=== PATIENT | female | born 1965 | race Hispanic/Latino ===

== ENCOUNTER 2017-04-09 15:57 | Emergency (ER) | payer OTHER ==
[2017-04-09 16:12] VITALS: BMI 20.7
[2017-04-09 16:14] VITALS: RESP 18; TEMP 97.9
--- NOTE | 2017-04-09 17:10 | ED PDOC ---
Arrival/HPI - General Chief Complaint: Weakness/Neurological Deficit Time Seen by Provider: 04/09/17 16:28 Historian: Patient, Family - History of Present Illness Narrative History of Present Illness (Text): 04/09/17 17:02 Pt is 51 yo F c/o anxiety and right leg weakness x 2 days with the most recent event at 2 pm today when she woke up. Pt has a PMH of peripheral neuropathy, anxiety, and HTN, for which she has been treated for many years. Pt reports that for the last 2 days, she has not eaten or taken her medication due to her anxious state. Pt reports that she spoke with her [employer] yesterday who advised her to stop taking progesterone and Divigil that was started last Wednesday. Pt denies SOB, CP, syncope, WILKES, fever, chills, or GIB. Past Medical History - Tetanus Immunization Tetanus Immunization: Unknown - Reproductive Menopause: Yes - Cardiac Hx Cardiac Disorders: Yes Hx Hypertension: Yes - Psychiatric Hx Depression: Yes Hx Emotional Abuse: No Hx Physical Abuse: No Hx Substance Use: No - Surgical History Hx Section: Yes - Anesthesia Hx Anesthesia: Yes Hx Anesthesia Reactions: No Hx Malignant Hyperthermia: No - Suicidal Assessment Feels Threatened In Home Enviroment: No Family/Social History Family/Social History: No Known Family HX Smoking Status: Never Smoked Hx Alcohol Use: No Hx Substance Use: No Allergies/Home Meds Allergies/Adverse Reactions: Allergies No Known Allergies Allergy (Verified 04/09/17 16:17) Home Medications: Home Meds Medication Instructions Recorded Confirmed DULoxetine [Cymbalta] 20 mg PO DAILY 04/09/17 04/09/17 Diazepam [Valium] 10 mg PO BID 04/09/17 04/09/17 Estradiol [Divigel] 0.5 mg TD DAILY 04/09/17 04/09/17 Lisinopril [Zestril] 10 mg PO DAILY 04/09/17 04/09/17 Pantoprazole [Protonix] 40 mg PO DAILY 04/09/17 04/09/17 Progesterone, Micronized 100 mg PO DAILY 04/09/17 04/09/17 [Progesterone] Propranolol HCl [Propranolol HCl 120 mg PO DAILY 04/09/17 04/09/17 ER] Zolpidem [Ambien] 10 mg PO HS 04/09/17 04/09/17 Review of Systems - Review of Systems Constitutional: Normal Eyes: Normal ENT: Normal Respiratory: Normal. absent: SOB, Cough, Sputum, Wheezing, Other Cardiovascular: Normal. absent: Chest Pain, Palpitations, Edema, Calf Pain, RAMEY , Orthopnea, SY, Syncope, Other Gastrointestinal: Normal, Appetite Changes. absent: Abdominal Pain, Stool Changes, Constipation, Diarrhea, Nausea, Vomiting, Hematochezia, Hematemesis, Anorexia, Food Intolerance, Other Musculoskeletal: Normal. absent: Arthralgias, Back Pain, Neck Pain, Joint Swelling, Myalgias, Other Skin: Normal (face and limbs erythematous and cool; Pt's baseline). absent: Rash, Pruritis, Skin Lesions, Laceration, Abscess, Ulcer, Cellulitis, Other Neurological: Gait Changes (Requires assistance walking). absent: Normal, Headache, Dizziness, Focal Weakness, Speech Changes, SC, Facial Droop, DE, Disequilibrium, SE, Seizure, Other Psychiatric: Anxiety. absent: Normal, Depression, Suicidal Ideation, Other Physical Exam Vital Signs Reviewed: Yes Vital Signs Temp Pulse Resp BP Pulse Ox 04/09/17 20:45 67 18 145/101 H 100 04/09/17 17:49 94 H 18 174/91 H 98 04/09/17 16:13 97.9 F 102 H 18 180/110 H 98 Temperature: Afebrile Blood Pressure: Normal Pulse: Regular Respiratory Rate: Normal Appearance: Positive for: Well-Appearing, Non-Toxic, Uncomfortable, Other ( anxious-lookiing) Pain Distress: None Mental Status: Positive for: Alert and Oriented X 3 - Systems Exam Head: Present: Atraumatic, Normocephalic Pupils: Present: PERRL. No: Sluggish, Non-Reactive, Pinpoint, Other Extroacular Muscles: Present: EOMI. No: Gaze Palsy, Entrapment, Other Conjunctiva: Present: Normal. No: Injected, Icteric, Other Ears: Present: Normal, NORMAL TM Pharnyx: Present: Normal Respiratory/Chest: Present: Clear to Auscultation, Good Air Exchange. No: Respiratory Distress, Accessory Muscle Use Cardiovascular: Present: Regular Rate and Rhythm, Normal S1, S2, Tachycardic Abdomen: Present: Normal Bowel Sounds. No: Tenderness, Distention, Peritoneal Signs Upper Extremity: Present: Normal Inspection, Normal ROM, NORMAL PULSES, Erythema , Neurovascularly Intact, Temperature Abnormalties, Capillary Refill < 2s Lower Extremity: Present: Normal Inspection, NORMAL PULSES, Normal ROM, Tenderness, Erythema, Temperature Abnormalties (cool limbs), Neurovascularly Intact (SILT from L2-S1; toes numb) Neurological: Present: GCS=15, CN II-XII Intact, Speech Normal Skin: Present: Dry, Erythematous (face and bilateral limbs), Cold Lymphatic: No: Cervical Adenopathy, Axillary Adenopathy, Inguinal Adenopathy, Other Psychiatric: Present: Alert, Oriented x 3, Normal Insight, Normal Concentration , Anxious Medical Decision Making ED Course and Treatment: 04/09/17 17:23 Pt is 51 yo F c/o anxiety and right leg weakness x 2 days with the most recent event at 2 pm today when she woke up. On exam, pt appeared very anxious, with extremities erythematous, non-edematous x4 bilateral. Working Diagnosis: R/O CVA R/O ACS Anxiety Plan: Cardiac workup ordered including ecg, cbc, cmp and troponin x1 Head CT w/o contrast to r/o cva Alprazolam .5 mg po STAT given for anxiety Pt was informed of diagnostic findings and advised to resume taking her medication as directed when she returns home. Final diagnosis of general anxiety was established Proper medication use and compliancy was reinforced with the patient as well as regular meals and adequate fluid intake. She was also directed to contact her PMD, Dr. Galo, for follow up to discuss modifying current medications. Vital signs were re-checked prior to discharge; systolic bp dropped approx. 30 points and pulse returned below 100 bpm. Pt was stable and ambulated out of the ER without issue. - Lab Interpretations Lab Results: 04/09/17 17:38 04/09/17 17:38 Lab Results 04/09/17 17:38: Sodium 135, Potassium 3.9, Chloride 92 L, Carbon Dioxide 31, Anion Gap 16, BUN 8, Creatinine 0.6 L, Est GFR ( Amer) > 60, Est GFR (Non -Af Amer) > 60, Random Glucose 98, Calcium 10.5, Total Bilirubin 0.6, AST 52 H, ALT 96 H, Alkaline Phosphatase 154 H, Lactate Dehydrogenase 403, Total Creatine Kinase 62, Troponin I < 0.01, Total Protein 8.5 H, Albumin 4.7, Globulin 3.9, Albumin/Globulin Ratio 1.2 04/09/17 17:38: WBC 7.4, RBC 4.93, Hgb 15.3, Hct 42.5, MCV 86.2, MCH 31.0, MCHC 36.0, RDW 14.6 H, Plt Count 204, MPV 10.1, Gran % 85.6 H, Lymph % (Auto) 7.0 L, [place] % (Auto) 7.0 H, Eos % (Auto) 0.3 L, Baso % (Auto) 0.1, Gran # 6.31, Lymph # 0.5 L, [place] # 0.5, Eos # 0.0, Baso # 0.01 - RAD Interpretation Radiology Orders: 04/09/17 17:21 HEAD W/O CONTRAST [CT] Stat Head CT indicates no evidence of intracranial bleed - EKG Interpretation EKG Interpretation (Text): 04/09/17 19:24 NSR, Left atrial enlargement, Rate 60 - Medication Orders Current Medication Orders: Discontinued Medications Alprazolam (Xanax) 0.5 mg PO STAT STA PRN Reason: Protocol Stop: 04/09/17 17:14 Last Admin: 04/09/17 17:48 Dose: 0.5 mg NIHSS Stroke Scale 3 - Date/Time Evaluation Performed Date Performed: 04/09/17 Time Performed: 18:30 - How Severe is the Stroke Level of Consciousness: 0=Alert LOC to Questions: 0=Both comments correct LOC to commands: 0=Obeys both correctly Best Gaze: 0=Normal Visual: 0=No visual loss Facial: 0=Normal Motor Arm - Left: 0=No drift Motor Arm - Right: 0=No drift Motor Leg - Left: 0=No drift Motor Leg - Right: 0=No drift Limb Ataxia: 0=Absent Sensory: 0=Normal (Pt at baseline in terms of sensory exam) Best Language: 0=No aphasia Dysarthia: 0=Normal articulation Extinction & Inattention (Neglect): 0=Normal, no object Score: 0 Disposition/Present on Arrival - Present on Arrival Any Indicators Present on Arrival: Yes History of DVT/PE: No History of Uncontrolled Diabetes: No Urinary Catheter: No History of Decub. Ulcer: No History Surgical Site Infection Following: None - Disposition Have Diagnosis and Disposition been Completed?: Yes Diagnosis: Anxiety Disposition: HOME/ ROUTINE Disposition Time: 20:45 Patient Plan: Discharge Condition: STABLE Discharge Instructions (ExitCare): Anxiety (ED) Additional Instructions: Dear Patient, You have been examined and evaluated for your current condition. You have been deemed stable and fit to return home. Please make sure that you eat something, drink plenty of fluids and take your medication as prescribed. If you experience an increase or change in symptoms such as fever, chest pain or shortness of breath of any other alarming symptoms, return to the emergency room immediately. Please follow up with your Primary Doctor in the next few days to talk about the medication you take as well any further diagnostic tests that need to be done. All the best in your recovery. Referrals: Randell Garcia MD [Primary Care Provider] - Follow up with primary Forms: [employer] (Setswana)
[2017-04-09 17:56] LABS: BASO # 0.01 K/mm3 (0.0-2.0); BASO % 0.1 % (0.0-3.0); EOS % 0.3 % (1.5-5.0); GRAN # 6.31 (1.4-6.5); GRAN % 85.6 % (50.0-68.0); HEMOGLOBIN 15.3 g/dL (12.0-16.0); LYMPH # 0.5 (1.2-3.4); MEAN CELL VOLUME 86.2 fl (80.0-105.0); MEAN PLATELET VOLUME 10.1 fl (7.0-11.0); MONO # 0.5 (0.1-0.6); RBC 4.93 10^6/uL (3.5-6.1); RED CELL DISTRIBUTION WIDTH 14.6 % (11.5-14.5); WHITE BLOOD COUNT 7.4 10^3/ul (4.5-11.0)
[2017-04-09 18:04] LABS: ALBUMIN 4.7 g/dL (3.0-4.8); ALT/SGPT 96 U/L (7-56); AST/SGOT 52 U/L (14-36); BLOOD UREA NITROGEN 8 mg/dL (7-21); CALCIUM 10.5 mg/dL (8.4-10.5); GFR AFRICAN-AMERICAN > 60; GFR NON-AFRICAN AMERICAN > 60
[2017-04-09 18:11] LABS: ALB/GLOB RATIO 1.2 (1.1-1.8)
[2017-04-09 18:15] LABS: TROPONIN I < 0.01 ng/mL
--- NOTE | 2017-04-09 19:00 | CT ---
PROCEDURE: CT HEAD WITHOUT CONTRAST. HISTORY: Anxiety, altered mental status, right leg numbness COMPARISON: 04/17/2013 TECHNIQUE: Axial computed tomography images were obtained through the head/brain without intravenous contrast. Coronal and sagittal reconstructed images. Radiation dose: Total exam DLP = 1000.63 mGy-cm. This CT exam was performed using one or more of the following dose reduction techniques: Automated exposure control, adjustment of the mA and/or kV according to patient size, and/or use of iterative reconstruction technique. FINDINGS: HEMORRHAGE: No intracranial hemorrhage. BRAIN: No mass effect or edema. No atrophy or chronic microvascular ischemic changes. VENTRICLES: Unremarkable. No hydrocephalus. CALVARIUM: Unremarkable. PARANASAL SINUSES: Unremarkable as visualized. No significant inflammatory changes. MASTOID AIR CELLS: Unremarkable as visualized. No inflammatory changes. OTHER FINDINGS: None. IMPRESSION: No acute intracranial abnormalities. No significant findings to account for the clinical presentation. No significant interval change compared to the prior examination(s).
[2017-04-09 21:22] VITALS: BP 145/101; PULSE 67; O2SAT 100
--- NOTE | 2017-04-10 10:58 | CARD ---
APPROVED REPORT EKG Measurement Heart [id number] <Conclusion> Normal sinus rhythm PRWP Electrical artifact present Improved repolarization c/w ECG 10/15/13
== END 2017-04-09 20:45 | disposition home or self-care (01) ==
LOC: ED 15:57
DX: F41.9 Anxiety disorder, unspecified (principal); I10 Essential (primary) hypertension